=== PATIENT | male | born 1990 | race American Indian/Alaskan Native ===

== ENCOUNTER 2021-06-22 16:41 | Emergency (ER) | payer OTHER ==
--- NOTE | 2021-06-22 20:15 | XRay Report ---
XR chest routine 2V INDICATION / CLINICAL INFORMATION: left CP overlying the left sternum region COMPARISON: None available. FINDINGS: SUPPORT DEVICES: None. HEART / MEDIASTINUM: No significant abnormality. LUNGS / PLEURA: 1.4 cm nodular opacity left lower lung zone near the costophrenic sulcus. Costophreni c sulci are sharp. No pneumothorax. ADDITIONAL FINDINGS: No significant additional findings. IMPRESSION: 1. 1.4 cm nodular opacity in left lower lung zone most likely a granuloma. However, can obtain a CT c hest to further characterize. Signer Name: Luis Miguel Nazario MD Signed: 06/22/2021 8:11 PM Workstation Name: [id number]
--- NOTE | 2021-06-22 20:40 | Emergency Department Report ---
ED General Adult HPI - General Chief complaint: Chest Pain Stated complaint: CHEST PAIN LEFT SIDE/UPPER BACK Time Seen by Provider: 06/22/21 19:14 Source: patient Mode of arrival: Ambulatory Limitations: No Limitations - History of Present Illness Initial comments: Patient is a 30-year-old male presents emergency room complaints of left-sided chest wall pain that began 3 months ago. Patient states that his pain has been increasing and he states that he feels like there is some swelling to his left chest wall. He denies any fall, injury, heavy lifting. He denies any redness, increased warmth, rashes. He denies any fever, chills, hemoptysis, cough, vomiting, diarrhea. He states occasionally he feels some mild shortness of breath. Past medical history of ulcers. No allergies to medications. Patient is a smoker. - Related Data Previous Rx's Medication Instructions Recorded Last Taken Type Naproxen 375 mg PO BID PRN #14 tab 06/22/21 Unknown Rx Prednisone [predniSONE 10 mg 10 mg PO .TAPER #1 06/22/21 Unknown Rx (6-Day Pack, 21 Tabs)] methOCARBAMOL [Robaxin TAB] 500 mg PO BID PRN #14 tab 06/22/21 Unknown Rx Allergies Allergy/AdvReac Type Severity Reaction Status Date / Time No Known Allergies Allergy Verified 06/22/21 17:52 ED Review of Systems ROS: Stated complaint: CHEST PAIN LEFT SIDE/UPPER BACK Other details as noted in HPI Comment: All other systems reviewed and negative ED Past Medical Hx - Past Medical History Hx Asthma: Yes Additional medical history: ulcers - Medications Home Medications: Home Medications Medication Instructions Recorded Confirmed Last Taken Type Naproxen 375 mg PO BID PRN #14 tab 06/22/21 Unknown Rx Prednisone [predniSONE 10 mg 10 mg PO .TAPER #1 06/22/21 Unknown Rx (6-Day Pack, 21 Tabs)] methOCARBAMOL [Robaxin TAB] 500 mg PO BID PRN #14 tab 06/22/21 Unknown Rx ED Physical Exam - General Limitations: No Limitations General appearance: alert, in no apparent distress - Head Head exam: Present: atraumatic, normocephalic - Eye Eye exam: Present: normal appearance - ENT ENT exam: Present: mucous membranes moist - Respiratory Respiratory exam: Present: normal lung sounds bilaterally, chest wall tenderness (left upper chest wall ttp just lateral to the sternum, no edema, no erythema, no increased warmth, no skin changes ). Absent: respiratory distress, wheezes, rales, rhonchi, stridor, accessory muscle use, decreased breath sounds, prolonged expiratory - Cardiovascular Cardiovascular Exam: Present: regular rate, normal rhythm, normal heart sounds. Absent: systolic murmur, diastolic murmur, rubs, gallop - Neurological Exam Neurological exam: Present: alert, oriented X3 - Psychiatric Psychiatric exam: Present: normal affect, normal mood - Skin Skin exam: Present: warm, dry, intact ED Course Vital Signs 06/22/21 21:03 Pulse Rate 65 Respiratory 14 Rate Blood Pressure 111/71 [Left] O2 Sat by Pulse 100 Oximetry ED Medical Decision Making - Lab Data Result diagrams: 06/22/21 20:43 06/22/21 20:43 - EKG Data EKG shows normal: sinus rhythm, axis, intervals, QRS complexes Rate: normal - EKG Data 06/22/21 20:40 ST elevation which appears to be probable normal early repolarization No STEMI - Radiology Data Radiology results: report reviewed Ordering Physician: KWAN CASTRO Date of Service: 06/22/21 Procedure(s): XR chest routine 2V Accession Number(s): [id number] cc: KWAN CASTRO Fluoro Time In Minutes: XR chest routine 2V INDICATION / CLINICAL INFORMATION: left CP overlying the left sternum region COMPARISON: None available. FINDINGS: SUPPORT DEVICES: None. HEART / MEDIASTINUM: No significant abnormality. LUNGS / PLEURA: 1.4 cm nodular opacity left lower lung zone near the costophrenic sulcus. Costophrenic sulci are sharp. No pneumothorax. ADDITIONAL FINDINGS: No significant additional findings. IMPRESSION: 1. 1.4 cm nodular opacity in left lower lung zone most likely a granuloma. However, can obtain a CT chest to further characterize. Signer Name: Luis Miguel Nazario MD Signed: 06/22/2021 8:11 PM Workstation Name: [id number] Transcribed By: AGAPITO Dictated By: Luis Miguel Nazario MD Electronically Authenticated By: Luis Miguel Nazario MD Signed Date/Time: 06/22/212010 DD/ 08 TD/TT: Ordering Physician: KWAN CASTRO Date of Service: 06/22/21 Procedure(s): CT angio chest Accession Number(s): [id number] cc: KWAN CASTRO CTA CHEST WITH CONTRAST INDICATION / CLINICAL INFORMATION: LEFT sided chest pain, abnormal CXR. TECHNIQUE: Axial CT images were obtained through the chest after injection of 100 cc of Omnipaque 350 IV contrast. 3 plane MIP and/or 3D reconstructions were produced. All CT scans at this location are performed using CT dose reduction for ALARA by means of automated exposure control. COMPARISON: Chest radiograph 06/22/2021 FINDINGS: PULMONARY ARTERIES: No pulmonary emboli. THORACIC AORTA: No significant abnormality. HEART: No significant abnormality. CORONARY ARTERY CALCIFICATION: None. MEDIASTINUM / BOBBY: No significant abnormality. PLEURA: No pleural effusion. No pneumothorax. LUNGS: There is a 1.7 cm solid nodule in the left lung base with central calcification. Mild upper lobe predominant paraseptal emphysema. No additional lung nodule identified. ADDITIONAL FINDINGS: None. UPPER ABDOMEN: No acute findings. SKELETAL STRUCTURES: No significant osseous abnormality. IMPRESSION: 1. Left lower lobe nodule with central calcification corresponds to abnormality on chest radiograph. This likely represents a benign granuloma or hamartoma. If clinically indicated, a follow-up chest CT can be performed. 2. Mild upper lobe predominant emphysema. Signer Name: Deion Medina MD Signed: 06/22/2021 10:28 PM Workstation Name: [id number] Transcribed By: DB Dictated By: DEION MEDINA MD Electronically Authenticated By: DEION MEDINA MD Signed Date/Time: 06/22/212227 DD/ 19 TD/TT: - Medical Decision Making Patient is a 30-year-old male presents emergency room complaints of left-sided chest wall pain that began 3 months ago. Patient states that his pain has been increasing and he states that he feels like there is some swelling to his left chest wall. He denies any fall, injury, heavy lifting. He denies any redness, increased warmth, rashes. He denies any fever, chills, hemoptysis, cough, vomiting, diarrhea. He states occasionally he feels some mild shortness of breath. Past medical history of ulcers. No allergies to medications. Patient is a smoker. Vitals are normal. EKG with ST elevation likely consistent with normal early repolarization, otherwise normal. CXR 1. 1.4 cm nodular opacity in left lower lung zone most likely a granuloma. However, can obtain a CT chest to further characterize. Labs are normal. CT angio chest 1. Left lower lobe nodule with central calcification corresponds to abnormality on chest radiograph. This likely represents a benign granuloma or hamartoma. If clinically indicated, a follow-up chest CT can be performed. 2. Mild upper lobe predominant emphysema. Patient states he quit smoking 1 year ago. Discussed all findings with patient. Discussed the importance of primary care and pulmonology follow-up. Advised patient Please take medication as prescribed as needed. Follow-up with primary care doctor. Follow-up with back end web developer. Return to emergency room for any new or worse symptoms. Critical care attestation.: If time is entered above; I have spent that time in minutes in the direct care of this critically ill patient, excluding procedure time. ED Disposition Clinical Impression: Chest wall pain, Pulmonary nodule Emphysema lung Qualifiers: Emphysema type: unspecified Qualified Code(s): J43.9 - Emphysema, unspecified Disposition: 01 HOME / SELF CARE / HOMELESS Is pt being admited?: No Does the pt Need Aspirin: No Condition: Stable Instructions: Nonspecific Chest Pain, Adult, Pulmonary Nodule, Chronic Obstruct reena Pulmonary Disease (ED) Additional Instructions: Please take medication as prescribed as needed. Follow-up with primary care doctor. Follow-up with back end web developer. Return to emergency room for any new or worse symptoms. Prescriptions: Naproxen 375 mg PO BID PRN #14 tab PRN Reason: pain Prednisone [predniSONE 10 mg (6-Day Pack, 21 Tabs)] 10 mg PO .TAPER #1 methOCARBAMOL [Robaxin TAB] 500 mg PO BID PRN #14 tab PRN Reason: muscle spasm/pain Referrals: DAVID CARPIO MD [Primary Care Provider] - 3-5 Days MANOJ OSBORNE MD [Staff Physician] - 3-5 Days Time of Disposition: 22:39 Print Language: BAHAMIAN
[2021-06-22 21:04] VITALS: BP 111/71
[2021-06-22 21:08] LABS: Basophils % (Auto) 0.5 % (0.0-1.8); Eosinophils # (Auto) 0.2 K/mm3 (0.0-0.4); Eosinophils % (Auto) 3.6 % (0.0-4.3); Hematocrit 43.2 % (35.5-45.6); Hemoglobin 14.2 gm/dl (11.8-15.2); Lymphocytes # (Auto) 2.1 K/mm3 (1.2-5.4); Lymphocytes % (Auto) 46.2 % (13.4-35.0); Mean Corpuscular HGB Conc 33 % (32-34); Mean Corpuscular Volume 91 fl (84-94); Monocytes # (Auto) 0.3 K/mm3 (0.0-0.8); Monocytes % (Auto) 7.5 % (0.0-7.3); Platelet Count 315 K/mm3 (140-440); Red Blood Count 4.76 M/mm3 (3.65-5.03); Red Cell Distribution Width 14.6 % (13.2-15.2)
[2021-06-22 21:31] LABS: Alanine Aminotransferase 13 units/L (7-56); Albumin 4.4 g/dL (3.9-5); Blood Urea Nitrogen 10 mg/dL (9-20); Calcium 8.8 mg/dL (8.4-10.2); Hemolysis Index 3
[2021-06-22 21:48] LABS: BUN/Creatinine Ratio 14
--- NOTE | 2021-06-22 22:33 | Cat Scan Report ---
CTA CHEST WITH CONTRAST INDICATION / CLINICAL INFORMATION: LEFT sided chest pain, abnormal CXR. TECHNIQUE: Axial CT images were obtained through the chest after injection of 100 cc of Omnipaque 350 IV contrast. 3 plane MIP and/or 3D reconstructions were produced. All CT scans at this location are performed using CT dose reduction for ALARA by means of automated exposure control. COMPARISON: Chest radiograph 06/22/2021 FINDINGS: PULMONARY ARTERIES: No pulmonary emboli. THORACIC AORTA: No significant abnormality. HEART: No significant abnormality. CORONARY ARTERY CALCIFICATION: None. MEDIASTINUM / BOBBY: No significant abnormality. PLEURA: No pleural effusion. No pneumothorax. LUNGS: There is a 1.7 cm solid nodule in the left lung base with central calcification. Mild upper lo be predominant paraseptal emphysema. No additional lung nodule identified. ADDITIONAL FINDINGS: None. UPPER ABDOMEN: No acute findings. SKELETAL STRUCTURES: No significant osseous abnormality. IMPRESSION: 1. Left lower lobe nodule with central calcification corresponds to abnormality on chest radiograph. This likely represents a benign granuloma or hamartoma. If clinically indicated, a follow-up chest CT can be performed. 2. Mild upper lobe predominant emphysema. Signer Name: Deion Medina MD Signed: 06/22/2021 10:28 PM Workstation Name: [id number]
--- NOTE | 2021-06-23 11:52 | Electrocardiograph Report ---
[facility] Test Date: 2021-06-22 Test Time: 17:42:17 Pat Name: SHANTHI MCNEILL Department: Room: Gender: M Composite Mechanic: MATY : 1990 Requested By: NAVEED SINGLETON Order Number: [id number] Reading MD: Kvng Myers Measurements Intervals [place] Rate: 66 P: 60 SC: 127 QRS: 84 QRSD: 71 T: 64 QT: 383 QTc: 401 Interpretive Statements Sinus rhythm ST elev, probable normal early repol pattern No previous ECG available for comparison Electronically Signed On 06-23-2021 11:52:20 EDT by Kvng Myers
== END 2021-06-22 22:56 | disposition home or self-care (01) ==
LOC: ED 16:41
DX: R07.89 Other chest pain (principal); R91.1 Solitary pulmonary nodule; J43.8 Other emphysema; J45.909 Unspecified asthma, uncomplicated
CPT/HCPCS: 36415; 71046; 71275; 80053; 85025; 93005; 99284; Q9967